=== PATIENT | male | born 1985 | race Caucasian/White ===

== ENCOUNTER 2023-02-06 09:15 | Outpatient (CLI) | payer OTHER | END 2023-02-06 09:16 | disposition home or self-care (01) | LOC: SCSMRI 09:15 | DX: S06.9XAS Unspecified intracranial injury with loss of consciousness status unknown, sequela (principal); M47.812 Spondylosis without myelopathy or radiculopathy, cervical region; M50.322 Other cervical disc degeneration at C5-C6 level; M50.323 Other cervical disc degeneration at C6-C7 level; R60.9 Edema, unspecified; G93.89 Other specified disorders of brain; Z98.890 Other specified postprocedural states | CPT/HCPCS: 70551; 72141 ==

== ENCOUNTER 2023-03-16 09:40 | Outpatient (CLI) | payer OTHER | END 2023-03-16 09:41 | disposition home or self-care (01) | LOC: SCSCT 09:40 | DX: S02.19XD Other fracture of base of skull, subsequent encounter for fracture with routine healing (principal); Z87.820 Personal history of traumatic brain injury | CPT/HCPCS: 70486 ==